=== PATIENT | female | born 1950 | race Caucasian/White ===

== ENCOUNTER 2022-03-07 14:26 | Outpatient (CLI) | payer MEDICARE, OTHER ==
--- NOTE | 2022-03-12 16:14 | Mammography Report ---
BILATERAL DIGITAL SCREENING MAMMOGRAM 3D/2D: 03/07/2022 CLINICAL: Routine screening. Comparison is made to exams dated: 07/05/2020 mammogram, 08/07/2016 mammogram, and 05/25/2014 mammogr am [facility]. The tissue of both breasts is heterogeneously dense. This may lower the sensitiv ity of mammography. No significant masses, calcifications, or other findings are seen in either breast. There has been no significant interval change. IMPRESSION: NEGATIVE There is no mammographic evidence of malignancy. A 1 year screening mammogram is recommended. Based on the Tyrer Cuzick model (a risk assessment model) the patients lifetime risk is 7.7% and her 10 year risk is 4.9%. According to the ACR, ACS, and NCCN guidelines, an annual breast MRI exam linda g with mammogram is recommended if the patients lifetime risk is 20% or greater. This exam was interpreted at Station ID: [id number]. NOTE: For mammograms, a report in lay terms will be sent to the patient. Approximately 15% of breast malignancies will not be visualized mammographically. In the management of a palpable breast mass, a negative mammogram must not discourage biopsy of a clinically suspicious lesion. Electronically Signed By: Francisco Javier [email or web address]:03/12/2022 10:41:30 ACR BI-RADS Category 1: Negative 3341F PARENCHYMAL PATTERN: (D) - The breast(s) demonstrate(s) heterogeneously dense fibroglandular parsindiy ma. BI-RADS CATEGORY: (1) - 1 RECOMMENDATION: (ANNUAL) - Recommend routine annual screening mammography. [id number] 1 year screening LATERALITY: (B)
== END 2022-03-07 14:27 | disposition home or self-care (01) ==
LOC: DI 14:26
PROVIDERS: ATTEND Internal Medicine
DX: Z12.31 Encounter for screening mammogram for malignant neoplasm of breast (principal)

== ENCOUNTER 2023-11-21 19:39 | Emergency (ER) | payer MEDICARE, OTHER ==
[2023-11-21 19:54] VITALS: O2SAT 96
[2023-11-21] MEDS: MECLIZINE 12.5 MG TABLET PO STA (20:18)
[2023-11-21] MEDS: ONDANSETRON 4 MG/2 ML VIAL IVP STA (20:18)
--- NOTE | 2023-11-21 20:19 | ED Physician Documentation ---
History of Present Illness - Stated complaint Stated Complaint: DIZZY/VOMITING - Chief complaint Chief Complaint: General - History obtained from History obtained from: Patient - Additonal information Additional information: HPI from patient. Patient's chief complaint is dizziness/vertigo. She has sensation of the room spinning, consistently set off with movement such as turning her head or standin g and ambulating. The vertigo episodes are associate with nausea and vomiting. Symptoms are improved with rest and lying still. The vertigo was of sudden onset 2 to 3 days ago and has been associated with a left occipital temporal headache; patient says the headache has steadily improved. She denies focal weakness, denies numbness. She says she was having difficulty reading earlier today but that this has resolved. She took a home COVID test earlier today and tested positive. She is not aware of any fevers at home. She denies shortness of breath, cough. She denies abdominal pain. Review of Systems Constitutional: denies: Fever, Chills, Sweats Eyes: reports: Decreased vision (resolved). denies: Photophobia Ears: denies: Ear pain Nose: denies: Rhinorrhea / runny nose, Congestion, Sinus pressure / pain PD PAST MEDICAL HISTORY - Past Medical History Past Medical History: No Neuro: Parkinson's Psych: Anxiety - Past Surgical History Past Surgical History: Yes General: Appendectomy /ADVICE NURSE: Hysterectomy - Present Medications Home Medications: Ambulatory Orders Medication Instructions Recorded Confirmed Meclizine HCl 25 mg PO Q6HR PRN #20 tab 11/21/23 Nirmatrelvir/Ritonavir [Paxlovid 1 each PO UD #1 kit 11/21/23 300-100 mg Dose Pack] Ondansetron Odt [Zofran Odt] 4 mg TL Q6H PRN #14 tablet 11/21/23 - Allergies Allergies/Adverse Reactions: Allergies Allergy/AdvReac Type Severity Reaction Status Date / Time No Known Drug Allergies Allergy Verified 11/21/23 20:27 - Social History Does the pt smoke?: No Smoking Status: Never smoker Does the pt drink ETOH?: No Does the pt have substance abuse?: No - Immunizations Immunizations are current?: Yes PD ED PE NORMAL - Vitals Vital signs reviewed: Yes - General General: Alert and oriented X 3, No acute distress (NAD at rest, appears uncomfortable with movement of head), Well developed/nourished - HEENT HEENT: PERRL, EOMI, Other (several beats of nystagmus with rightward gaze) - Cardiac Cardiac: RRR, No murmur - Respiratory Respiratory: No respiratory distress, Clear bilaterally - Neuro Neuro: Alert and oriented X 3, 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, No motor deficit, No sensory deficit, Normal speech Eye Opening: Spontaneous Motor: Obeys Commands Verbal: Oriented GCS Score: 15 Results - Vitals Vitals: Vital Signs - 24 hr 11/21/23 11/21/23 19:43 21:13 Temperature 37.4 C 37.4 C Heart Rate 84 78 Respiratory 16 16 Rate Blood Pressure 132/73 H 133/70 H O2 Saturation 96 96 Oxygen O2 Source Room air - Labs Labs: Laboratory Tests 11/21/23 11/21/23 20:13 20:13 WBC 4.8 RBC 5.18 Hgb 14.7 Hct 45.9 MCV 88.6 MCH 28.4 MCHC 32.0 RDW 12.5 Plt Count 206 MPV 10.0 Neut # (Auto) 4.1 Lymph # (Auto) 0.4 L [place] # (Auto) 0.4 Eos # (Auto) 0.0 Baso # (Auto) 0.0 Absolute Nucleated RBC 0.00 Nucleated RBC % 0.0 Sodium 133 L Potassium 3.6 Chloride 97 L Carbon Dioxide 26 Anion Gap 10.0 BUN 11 Creatinine 0.6 Estimated GFR (MDRD) 98 Glucose 104 Calcium 10.2 Total Bilirubin 0.6 AST 19 ALT 19 Alkaline Phosphatase 76 Total Protein 7.5 Albumin 4.4 Globulin 3.1 Albumin/Globulin Ratio 1.4 Lipase 46 PD Medical Decision Making - ED course Complexity details: reviewed results, re-evaluated patient, considered differential, d/w patient ED course: No concerning nor diagnostic findings on tonight's blood tests. Normal CBC except for insignificant/noncontributory finding of low lymphocytes. Normal ER abdominal panel except for insignificant/noncontributory findings of minimal hyponatremia (132), low chloride. She is given 1 L normal saline IV as well as 4 mg IV Zofran and 25 mg of meclizine p.o. On reevaluation, we discussed results of the lab tests. The patient says her symptoms have resolved entirely and she was able to ambulate to/from the bathroom without any symptoms. Diagnosis of vertigo was discussed as well as prognosis. I have electronically submitted prescriptions for meclizine, Zofran, as well as Paxlovid to the [facility] pharmacy in [place]. The reason for the Paxlovid prescription is that we are out of stock of this medication at [facility], and the patient says she had a positive COVID test at home earlier [facility]. She qualifies for Paxlovid based on her age as well as her history of Parkinson's disease. Departure - Departure Disposition: Home, Self Care Clinical Impression: Vertigo Condition: Good Instructions: Meclizine, ED Vertigo Unspecified Prescriptions: Meclizine HCl 25 mg PO Q6HR PRN #20 tab PRN Reason: Vertigo Nirmatrelvir/Ritonavir [Paxlovid 300-100 mg Dose Pack] 1 each PO UD #1 kit Ondansetron Odt [Zofran Odt] 4 mg TL Q6H PRN #14 tablet PRN Reason: Nausea / Vomiting Comments: There were no concerning nor diagnostic findings on [facility]'s blood tests. Your symptoms are strongly consistent with vertigo. Please refer to the instructions included in this discharge pack regarding this diagnosis, prognosis, and treatment. I have electronically submitted prescriptions for ondansetron (antinausea medication), meclizine (antivertigo medication), and Paxlovid (a kit containing 2 antiviral medications with instructions on dosing; this is being prescribed to treat your COVID) to the [facility] pharmacy in [place]. Discharge Date/Time: 11/21/23 22:08
[2023-11-21 20:26] LABS: BASOPHILS % (AUTO) 0.4 %; HCT - HEMATOCRIT 45.9 % (37.0-47.0); HGB - HEMOGLOBIN 14.7 g/dL (12.0-16.0); LYMPHOCYTES # (AUTO) 0.4 10^3/uL (1.5-3.5); LYMPHOCYTES % (AUTO) 7.2 %; MEAN CORPUSCULAR HEMOGLOBIN 28.4 pg (27.0-31.0); MEAN CORPUSCULAR VOLUME 88.6 fL (81.0-99.0); MONOCYTES # (AUTO) 0.4 10^3/uL (0.0-1.0); MONOCYTES % (AUTO) 7.6 %; NEUTROPHILS # (AUTO) 4.1 10^3/uL (1.5-6.6); NEUTROPHILS % (AUTO) 84.6 %; PLT - PLATELET COUNT 206 10^3/uL (130-450); RED BLOOD COUNT 5.18 10^6/uL (4.20-5.40); RED CELL DISTRIBUTION WIDTH 12.5 % (12.0-15.0); WHITE BLOOD COUNT 4.8 x10^3/uL (4.8-10.8)
[2023-11-21] MEDS: SODIUM CHLORIDE 0.9% 1,000 ML IV STA (20:26)
[2023-11-21 20:50] LABS: ALBUMIN 4.4 g/dL (3.2-5.5); ALBUMIN/GLOBULIN RATIO 1.4 (1.0-2.2); BILIRUBIN,TOTAL 0.6 mg/dL (0.2-1.0); CALCIUM 10.2 mg/dL (8.5-10.3); CREATININE 0.6 mg/dL (0.6-1.3); POTASSIUM 3.6 mmol/L (3.5-4.5); TOTAL PROTEIN 7.5 g/dL (6.4-8.9)
[2023-11-21 21:14] VITALS: BP 133/70
[2023-11-21] MEDS: ONDANSETRON ODT 4 MG Prepack 2 TL PRN (22:03)
== END 2023-11-21 22:08 | disposition home or self-care (01) ==
LOC: ED 19:39
DX: R42 Dizziness and giddiness (principal)
CPT/HCPCS: 36415; 80053; 83690; 85025; 96361; 96374; 99283; 99284; A9270

== ENCOUNTER 2024-04-01 07:27 | Outpatient (CLI) | payer MEDICARE, OTHER ==
[2024-04-01 18:37] LABS: BASOPHILS # (AUTO) 0.1 10^3/uL (0.0-0.1); BASOPHILS % (AUTO) 1.3 %; EOSINOPHILS # (AUTO) 0.2 10^3/uL (0.0-0.7); HCT - HEMATOCRIT 44.4 % (37.0-47.0); LYMPHOCYTES # (AUTO) 1.5 10^3/uL (1.5-3.5); LYMPHOCYTES % (AUTO) 37.6 %; MEAN CORPUSCULAR HEMOGLOBIN 29.4 pg (27.0-31.0); MEAN CORPUSCULAR HGB CONC 31.5 g/dL (32.0-36.0); MEAN CORPUSCULAR VOLUME 93.3 fL (81.0-99.0); MEAN PLATELET VOLUME 10.2 fL (7.9-10.8); MONOCYTES # (AUTO) 0.4 10^3/uL (0.0-1.0); MONOCYTES % (AUTO) 8.8 %; NEUTROPHILS # (AUTO) 1.9 10^3/uL (1.5-6.6); NEUTROPHILS % (AUTO) 48.3 %; PLT - PLATELET COUNT 250 10^3/uL (130-450); RED BLOOD COUNT 4.76 10^6/uL (4.20-5.40); RED CELL DISTRIBUTION WIDTH 12.9 % (12.0-15.0)
[2024-04-01 18:53] LABS: ALBUMIN/GLOBULIN RATIO 1.7 (1.0-2.2); ALKALINE PHOSPHATASE 81 IU/L (42-121); ALT ALANINE AMINOTRANSFERASE 16 IU/L (10-60); AST ASPARTATE AMINOTRANSFERASE 18 IU/L (10-42); BILIRUBIN,TOTAL 0.5 mg/dL (0.2-1.0); BUN - BLOOD UREA NITROGEN 14 mg/dL (6-20); CALCIUM 9.6 mg/dL (8.5-10.3); CARBON DIOXIDE - CO2 30 mmol/L (21-32); CHLORIDE 104 mmol/L (101-111); CHOL/HDL RATIO 2.6 (<4.4); CHOLESTEROL 198 mg/dL; CREATININE 0.6 mg/dL (0.6-1.3); GFR - MDRD 98 (>89); GLUCOSE 82 mg/dL (74-104); HDL CHOLESTEROL 75 mg/dL; LDL CHOLESTEROL,CALCULATED 101 mg/dL; LDL/HDL RATIO 1.3 (<4.4); POTASSIUM 4.4 mmol/L (3.5-4.5); SODIUM 137 mmol/L (135-145); TOTAL PROTEIN 6.4 g/dL (6.4-8.9); TRIGLYCERIDES 111 mg/dL; VLDL CHOLESTEROL 22 mg/dL
[2024-04-01 18:59] LABS: THYROID STIMULATING HORMONE 1.61 uIU/mL (0.34-5.60)
[2024-04-01 21:41] LABS: ESTIMATED AVERAGE GLUCOSE 94 mg/dL (70-100); HEMOGLOBIN A1c% 4.9 % (4.27-6.07)
== END 2024-04-01 07:28 | disposition home or self-care (01) ==
LOC: LAB.N 07:27
DX: G20.B2 Parkinson's disease with dyskinesia, with fluctuations (principal)
CPT/HCPCS: 36415; 80053; 80061; 83036; 83721; 84443; 85025